=== PATIENT | male | born 1970 | race Caucasian/White ===

== ENCOUNTER 2017-04-22 13:30 | Emergency (ER) | payer SELFPAY ==
[2017-04-22] MEDS ORDERED: CEFTRIAXONE 2 GM/D5W RTU 50 ML IV ONE (14:08)
[2017-04-22] MEDS ORDERED: DIPHENHYDRAMINE HCL 50 MG/ML VIAL IV ONE (14:08)
[2017-04-22] MEDS ORDERED: METOCLOPRAMIDE HCL INJ/PF 10 MG/2 ML SDV IV ONE (14:08)
[2017-04-22] MEDS ORDERED: MORPHINE SULFATE 10 MG/ML INJ IV ONE (14:08)
--- NOTE | 2017-04-22 14:11 | ER Document Report ---
ED General - General Chief Complaint: Headache Stated Complaint: POSSIBLE ETOH Time Seen by Provider: 04/22/17 13:46 Mode of Arrival: Medic Information source: Patient Notes: This is a 46-year-old Yoruba-speaking man who is brought in by EMS with severe headache in the setting of recent fever (100.5). Patient had reported to the PCP that he smoked a lot of pot yesterday. During the interpretation of Jason , he states he drinks 3 beers a day and has not had any drugs. He states that he does have a history of depression but he does not have a history of headaches. He states that his headache started 1 week ago. He states the headache is been quite severe. He states that his fevers were 2-3 days ago. History is with the assistance of Max at the bedside. Patient is originally from [place] and has been here for 5 years. He denies any history of migraines. - HPI Onset: Last week Onset/Duration: Gradual Quality of pain: Dull Severity: Moderate Associated symptoms: Chills, Fever, Other - Headache. denies: Shortness of breath Exacerbated by: Denies Relieved by: Denies Similar symptoms previously: No Recently seen / treated by doctor: No - Related Data Allergies/Adverse Reactions: No Known Allergies Allergy (Unverified 04/22/17 15:16) Past Medical History - General Information source: Patient - Social History Smoking Status: Never Smoker Cigarette use (# per day): No Chew tobacco use (# tins/day): No Frequency of alcohol use: Occasional Drug Abuse: None Lives with: Family Family History: Reviewed & Not Pertinent Patient has suicidal ideation: No Patient has homicidal ideation: No - Medical History Medical History: Negative Surgical Hx: Negative Review of Systems - Review of Systems Constitutional: Chills, Fever EENT: No symptoms reported Cardiovascular: No symptoms reported Respiratory: No symptoms reported Gastrointestinal: No symptoms reported Genitourinary: No symptoms reported Male Genitourinary: No symptoms reported Musculoskeletal: No symptoms reported Skin: No symptoms reported Hematologic/Lymphatic: No symptoms reported Neurological/Psychological: Headaches Physical Exam - Vital signs Vitals: Temp Pulse Resp BP Pulse Ox 96.3 F L 79 18 114/83 94 04/22/17 13:39 04/22/17 13:39 04/22/17 13:39 04/22/17 13:39 04/22/17 13:39 Notes: Interpretation is Via Max at the bedside. Physical exam: GENERAL: 46-year-old man, alert and oriented 3, appears in distress. He is sitting up in the stretcher holding his head. HEAD: Atraumatic, normocephalic. EYES: Pupils equal round and reactive to light, extraocular movements intact, sclera anicteric, conjunctiva are normal. ENT: TMs normal, nares patent, oropharynx clear without exudates. Moist mucous membranes. NECK: Normal range of motion, supple without lymphadenopathy or JVD. LUNGS: Breath sounds clear to auscultation bilaterally and equal. No wheezes rales or rhonchi. HEART: Regular rate and rhythm without murmurs, rubs or gallops. ABDOMEN: Soft, normoactive bowel sounds. No tenderness to palpation. No guarding, no rebound. No masses appreciated. EXTREMITIES: Normal range of motion, no pitting or edema. No clubbing or cyanosis. NEUROLOGICAL: Cranial nerves II through XII grossly intact. Normal speech, normal gait. PSYCH: Normal mood, normal affect. SKIN: Warm, Dry, normal turgor, no rashes or lesions noted. Course - Re-evaluation Re-evalutation: 04/22/17 19:14 Note: The patient is stating that he has the worst headache of his life. He does report having fever and chills over the last several days. Certainly a concern for possible subarachnoid hemorrhage or meningitis. He looks uncomfortable. He denies any history of headaches in the past. He has been drinking alcohol today. Head CT showed no evidence of acute bleed. Because of the concern for meningitis, a spinal tap was performed. Consent was obtained with the assistance of Max interpretation. Staff appears clear and without infection. 04/22/17 20:01 Note: I have had another discussion with the patient with the assistance of Max and I went over the results of the tests with the patient which is been good. Additionally, I will send him home on some pain medicine and have him follow-up with her primary care doctor in the community. I have advised him to consider [facility] for outpatient alcohol detox. He has been at that facility in the past. I have spoken with the patient's brother and kept him up to date on all the results at [phone]. He reiterated that the patient has long history of alcohol abuse and has had multiple inpatient and outpatient detox days and he will be seems to relapse. I am not convinced that the alcohol is the primary factor in the patient's headache today, but it will certainly complicate the clinical picture and I have discussed this with the patient's brother as well as the patient himself. - Vital Signs Vital signs: Temp Pulse Resp BP Pulse Ox 96.3 F L 63 16 101/62 96 04/22/17 13:39 04/22/17 18:42 04/22/17 18:42 04/22/17 18:42 04/22/17 18:42 - Laboratory Result Diagrams: 04/22/17 14:20 04/22/17 14:20 Laboratory results interpreted by me: 04/22/17 04/22/17 04/22/17 14:20 14:20 15:55 Hgb 17.7 H Hct 51.5 H Sodium 149.5 H Chloride 109 H CSF Total Protein 93 H Salicylates < 1.0 L Acetaminophen < 10 L - Diagnostic Test Radiology reviewed: Image reviewed, Reports reviewed - The head shows no bleed. CTA shows no aneurysm - EKG Interpretation by Me Rate: Normal Rhythm: NSR - EKG shows normal sinus rhythm with a ventricular rate of 76, no acute ST-T wave changes. Procedures - Lumbar Puncture Lumbar puncture Time completed: 16:04 Consent obtained: Yes - via Max at the bedside Lumbar puncture pre-procedure: Chloraprep applied Patient position: Sitting Needle size: 20 Lumbar puncture location: l4 Anesthetic type: 1% Lidocaine mL's of anesthetic: 4 Amount/type of drainage: 4 cc clear Number of attempts: 3 Complications: No Notes: 04/22/17 16:05 Fluid appears clear. Patient tolerated procedure well. Discharge - Discharge Clinical Impression: Severe headache, Alcohol intoxication, Alcohol abuse Condition: Stable Disposition: HOME, SELF-CARE Instructions: Headache ([facility]) Additional Instructions: Recommendations: Rest, drink plenty of fluids, take medicine as needed for headache. Stop drinking. I recommend you follow-up as an aunt for outpatient detox with [facility] : it is across the street from the hospital. [facility] [address] [place] Crisis Response: [phone] Outpatient services: [phone] Accepts self pay To the emergency room for worsening headache, fever, chills or any concerns or getting worse Prescriptions: Butalb/Acetaminophen/Caffeine [Fioricet (50-325-40 mg) Tablet] 1 tab PO Q4HP PRN #30 tab PRN Reason:
[2017-04-22 14:41] LABS: ABSOLUTE EOSINOPHILS # (AUTO) 0.2 10^3/uL (0.0-0.6); ABSOLUTE LYMPHOCYTES (AUTO) 2.6 10^3/uL (0.5-4.7); ABSOLUTE MONOCYTES (AUTO) 0.4 10^3/uL (0.1-1.4); ABSOLUTE NEUT (AUTO) 3.4 10^3/uL (1.7-8.2); BASOPHILS % (AUTO) 0.5 % (0-2); EOSINOPHILS % (AUTO) 2.5 % (0-6); HEMATOCRIT 51.5 % (37.9-51.0); HEMOGLOBIN 17.7 g/dL (13.5-17.0); HGB HCT DIFFERENCE 1.6; LYMPHOCYTES % (AUTO) 39.3 % (13-45); MEAN CORPUSCULAR HEMOGLOBIN 32.9 pg (27.0-33.4); MEAN CORPUSCULAR HGB CONC 34.4 g/dL (32.0-36.0); MEAN CORPUSCULAR VOLUME 96 fl (80-97); MONOCYTES % (AUTO) 6.6 % (3-13); RED BLOOD COUNT 5.38 10^6/uL (4.35-5.55); RED CELL DISTRIBUTION WIDTH 12.6 % (11.5-14.0); SEGMENTED NEUTROPHILS % (AUTO) 51.1 % (42-78); WHITE BLOOD COUNT 6.6 10^3/uL (4.0-10.5)
--- NOTE | 2017-04-22 14:57 | RADIOLOGY REPORT (SQ) ---
EXAM DESCRIPTION: CT HEAD WITHOUT COMPLETED DATE/TIME: 04/22/2017 2:48 pm REASON FOR STUDY: headache COMPARISON: None. TECHNIQUE: Axial images acquired through the brain without intravenous contrast. Images reviewed wi th bone, brain and subdural windows. Images stored on PACS. All CT scanners at this facility use dose modulation, iterative reconstruction, and/or weight based d osing when appropriate to reduce radiation dose to as low as reasonably achievable (ALARA). [facility]: Dose Right [facility]: CareDose [facility]: Dose Right [facility]: Teradose 4D [facility]: SRL Global RADIATION DOSE: 28.01 mGy. LIMITATIONS: None. FINDINGS: VENTRICLES: Normal size and contour. CEREBRUM: No masses. No hemorrhage. No midline shift. Normal irizarry/white matter differentiation. N o evidence for acute infarction. CEREBELLUM: No masses. No hemorrhage. No alteration of density. No evidence for acute infarction. EXTRAAXIAL SPACES: No fluid collections. No masses. ORBITS AND GLOBE: No intra- or extraconal masses. Normal contour of globe without masses. CALVARIUM: No fracture. PARANASAL SINUSES: No fluid or mucosal thickening. SOFT TISSUES: No mass or hematoma. OTHER: No other significant finding. IMPRESSION: NORMAL BRAIN CT WITHOUT CONTRAST. TECHNICAL DOCUMENTATION: JOB ID: [id number] Quality ID # [id number]: Final reports with documentation of one or more dose reduction techniques (e.g., Au tomated exposure control, adjustment of the mA and/or kV according to patient size, use of iterative reconstruction technique) 2010 [employer]- All Rights Reserved
[2017-04-22 14:58] LABS: ALANINE AMINOTRANSFERASE 40 U/L (21-72); ALBUMIN 4.6 g/dL (3.5-5.0); ALCOHOL 281 mg/dL (NONE DETECTED); ALKALINE PHOSPHATASE 57 U/L (38-126); ANION GAP 17 (5-19); ASPARTATE AMINO TRANSFERASE 28 U/L (17-59); BILIRUBIN,DIRECT 0.2 mg/dL (0.0-0.4); BILIRUBIN,TOTAL 0.5 mg/dL (0.2-1.3); BLOOD UREA NITROGEN 14 mg/dL (7-20); CALCIUM 9.4 mg/dL (8.4-10.2); CARBON DIOXIDE 24 mmol/L (22-30); CHLORIDE 109 mmol/L (98-107); CREATININE RESULT 0.88 mg/dL (0.52-1.25); GLUCOSE 90 mg/dL (75-110); POTASSIUM 4.3 mmol/L (3.6-5.0); SODIUM 149.5 mmol/L (137-145); TOTAL PROTEIN 7.7 g/dL (6.3-8.2)
[2017-04-22] MEDS ORDERED: ONDANSETRON HCL INJ/PF 4 MG/2 ML SDV IV ONE (16:03)
[2017-04-22 16:53] LABS: GLUCOSE,CSF 62 mg/dL (40-70)
[2017-04-22 16:55] LABS: APPEARANCE ALL TUBES CLEAR
[2017-04-22 16:56] LABS: RBC DILUENT USED NONE USED; RBC DILUTION FACTOR 1; RBC SIDE 1 21; RBC SIDE 2 23; TOTAL RBC SQUARES COUNTED 225
[2017-04-22 16:57] LABS: WHITE BLOOD CELL,CSF 2 /uL (0-5)
[2017-04-22 16:58] LABS: APPEARANCE ALL TUBES CLEAR; RBC SIDE 1 0
[2017-04-22 16:59] LABS: RBC DILUENT USED NONE USED; RBC DILUTION FACTOR 1; RBC SIDE 2 0; TOTAL RBC SQUARES COUNTED 225; WHITE BLOOD CELL,CSF 1 /uL (0-5)
[2017-04-22] MEDS ORDERED: NORMAL SALINE 1000 ML 1,000 ML IV PRN (17:03)
--- NOTE | 2017-04-22 17:10 | PSYCHOLOGICAL NOTE ---
Psych Note - Psych Note Psych Note: Patient presented to [facility] ED reporting SI and was referred for consultation. Scotty additionally reported severe headache symptoms, which per the ED MD will require extensive medical evaluation. Patient is also acutely intoxicated. Patient will be evaluated at a later time, closer to legal sobriety.
[2017-04-22 18:15] LABS: APPEARANCE,URINE CLEAR; BILIRUBIN,URINE NEGATIVE (NEGATIVE); GLUCOSE, URINE NEGATIVE (NEGATIVE); KETONES,URINE NEGATIVE (NEGATIVE); LEUKOCYTE ESTERASE,URINE NEGATIVE (NEGATIVE); NITRITE,URINE NEGATIVE (NEGATIVE); PROTEIN,URINE NEGATIVE (NEGATIVE); URINE SPECIFIC GRAVITY 1.013; UROBILINOGEN,URINE NEGATIVE mg/dL (<2.0)
[2017-04-22 18:27] LABS: URINE BARBITURATES SCREEN NEGATIVE; URINE METHADONE SCREEN NEGATIVE; URINE OPIATES LOW UNCONFIRMED POSITIVE; URINE PHENCYCLIDINE SCREEN NEGATIVE
[2017-04-22] MEDS ORDERED: KETOROLAC TROMETHAMINE INJ/PF 30 MG/1 ML SDV IV ONE (19:17)
[2017-04-22] MEDS ORDERED: BUTALB/ACETAMINOPHEN/CAFFEINE 1 TAB EACH PO ONE (19:28)
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
[2017-04-22 20:45] VITALS: BP 91/53
--- NOTE | 2017-04-22 21:15 | EKG REPORT ---
SEVERITY:- NORMAL ECG - SINUS RHYTHM : Confirmed by: Neisha Lau 22-Apr-2017 21:14:16
== END 2017-04-22 20:45 | disposition home or self-care (01) ==
LOC: ER 13:30 → EDBD 13:30 → ER 20:45
DX: R51 Headache (principal); R50.9 Fever, unspecified; F10.10 Alcohol abuse, uncomplicated; F10.129 Alcohol abuse with intoxication, unspecified
CPT/HCPCS: 93005; 99285; 96361; 96375; 96365; 36415; 87040; 87070; 87205; 80307 ×4; 85025; 89050; 82945; 84157; 80053; 81001; 70450; 70496; 93010; J3490; J1200; J2765; J2270; J2405; J7030; J0696

== ENCOUNTER 2017-05-22 11:22 | Emergency (ER) | payer SELFPAY ==
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
[2017-05-22 15:03] VITALS: BP 119/81
== END 2017-05-22 15:39 | disposition home or self-care (01) ==
LOC: ER 11:22
DX: S09.93XA Unspecified injury of face, initial encounter (principal); R10.9 Unspecified abdominal pain; R07.9 Chest pain, unspecified; M25.562 Pain in left knee; Z23 Encounter for immunization; R45.851 Suicidal ideations; V18.4XXA Pedal cycle driver injured in noncollision transport accident in traffic accident, initial encounter; Y93.55 Activity, bike riding; F10.129 Alcohol abuse with intoxication, unspecified
CPT/HCPCS: 70450; 71260; 72125; 99284

== ENCOUNTER 2017-05-29 01:57 | Emergency (ER) | payer SELFPAY ==
[2017-05-29 05:25] LABS: ABSOLUTE EOSINOPHILS # (AUTO) 0.3 10^3/uL (0.0-0.6); ABSOLUTE LYMPHOCYTES (AUTO) 1.9 10^3/uL (0.5-4.7); ABSOLUTE MONOCYTES (AUTO) 0.5 10^3/uL (0.1-1.4); ABSOLUTE NEUT (AUTO) 3.7 10^3/uL (1.7-8.2); ALANINE AMINOTRANSFERASE 37 U/L (21-72); ALBUMIN 4.1 g/dL (3.5-5.0); ALKALINE PHOSPHATASE 57 U/L (38-126); ANION GAP 15 (5-19); ASPARTATE AMINO TRANSFERASE 28 U/L (17-59); BASOPHILS % (AUTO) 0.5 % (0-2); BILIRUBIN,DIRECT 0.3 mg/dL (0.0-0.4); BILIRUBIN,TOTAL 0.4 mg/dL (0.2-1.3); BLOOD UREA NITROGEN 11 mg/dL (7-20); CALCIUM 8.9 mg/dL (8.4-10.2); CARBON DIOXIDE 23 mmol/L (22-30); CHLORIDE 110 mmol/L (98-107); CREATININE RESULT 0.79 mg/dL (0.52-1.25); EOSINOPHILS % (AUTO) 4.6 % (0-6); GLUCOSE 110 mg/dL (75-110); HEMATOCRIT 44.6 % (37.9-51.0); HEMOGLOBIN 15.2 g/dL (13.5-17.0); LYMPHOCYTES % (AUTO) 30.1 % (13-45); MEAN CORPUSCULAR HEMOGLOBIN 32.7 pg (27.0-33.4); MEAN CORPUSCULAR VOLUME 96 fl (80-97); MONOCYTES % (AUTO) 7.4 % (3-13); POTASSIUM 3.6 mmol/L (3.6-5.0); RED BLOOD COUNT 4.63 10^6/uL (4.35-5.55); RED CELL DISTRIBUTION WIDTH 12.9 % (11.5-14.0); SEGMENTED NEUTROPHILS % (AUTO) 57.4 % (42-78); SODIUM 148.3 mmol/L (137-145); WHITE BLOOD COUNT 6.4 10^3/uL (4.0-10.5)
--- NOTE | 2017-05-29 05:27 | ER Document Report ---
ED General - General Chief Complaint: Suicidal Ideation Stated Complaint: POSSIBLE ETOH/SUICIDIAL IDEATION Time Seen by Provider: 05/29/17 03:22 Cannot obtain history due to: Intoxicated Notes: Patient is a 46-year-old male well-known to me and this emergency department who presents after being found intoxicated behind the [employer]. At time of arrival he notes that he wants to kill himself stating that he has thought about doing this with a gun or by strangling himself. Patient admits to heavy alcohol use today. Patient frequently come to the emergency department complaining of suicidal ideation but denies these allegations when sober. He denies any acute medical complaints at this time. The history and physical exam was obtained by the provider using Belarusian. A formal hospital supervisor instrument mechanics was offered to the patient and any family at the bedside at the beginning of the encounter and was declined. - Related Data Allergies/Adverse Reactions: No Known Allergies Allergy (Unverified 04/22/17 15:16) Past Medical History - General Information source: Patient Cannot obtain history due to: Intoxicated - Social History Smoking Status: Never Smoker Frequency of alcohol use: Heavy Drug Abuse: None Lives with: Homeless Family History: Reviewed & Not Pertinent - Immunizations Hx Diphtheria, Pertussis, Tetanus Vaccination: - unknown Review of Systems - Review of Systems Notes: Constitutional: Negative for fever. HENT: Negative for sore throat. Eyes: Negative for visual changes. Cardiovascular: Negative for chest pain. Respiratory: Negative for shortness of breath. Gastrointestinal: Negative for abdominal pain, vomiting or diarrhea. Genitourinary: Negative for dysuria. Musculoskeletal: Negative for back pain. Skin: Negative for rash. Neurological: Negative for headaches, weakness or numbness. 10 point ROS negative except as marked above and in HPI. Physical Exam - Vital signs Vitals: Temp Pulse Resp BP Pulse Ox 97.1 F 89 16 128/86 H 96 05/29/17 02:11 05/29/17 02:11 05/29/17 02:11 05/29/17 02:11 05/29/17 02:11 Interpretation: Normal Notes: PHYSICAL EXAMINATION: GENERAL: Intoxicated, no acute distress HEAD: Atraumatic, normocephalic. EYES: Pupils equal round and reactive to light, extraocular movements intact, sclera anicteric, conjunctiva are normal. ENT: nares patent, oropharynx clear without exudates. Moist mucous membranes. NECK: Normal range of motion, supple without lymphadenopathy LUNGS: Breath sounds clear to auscultation bilaterally and equal. No wheezes rales or rhonchi. HEART: Regular rate and rhythm without murmurs ABDOMEN: Soft, nontender, normoactive bowel sounds. No guarding, no rebound. No masses appreciated. EXTREMITIES: Normal range of motion, no pitting or edema. No cyanosis. NEUROLOGICAL: No focal neurological deficits. Moves all extremities spontaneously and on command. PSYCH: Endorsing suicidal ideation, intoxicated. SKIN: Warm, Dry, normal turgor, no rashes or lesions noted. Course - Re-evaluation Re-evalutation: 05/29/17 05:25 Patient presents with alcohol intoxication, similar to previous presentations. He does complain of passive suicidal ideation with flight of ideas in regards to how he would kill himself. This is very similar to prior presentations. He denies any acute medical complaints. The medical screening exam is unremarkable. He does not meet involuntary commitment criteria at this time. He will see psychiatry in the morning. - Vital Signs Vital signs: Temp Pulse Resp BP Pulse Ox 97.1 F 89 16 128/86 H 96 05/29/17 02:11 05/29/17 02:11 05/29/17 02:11 05/29/17 02:11 05/29/17 02:11 - Laboratory Result Diagrams: 05/29/17 02:13 05/29/17 02:13 - EKG Interpretation by Me Additional EKG results interpreted by me: 05/29/17 05:26 Normal sinus rhythm. Rate 85. No ST elevations or depressions. QTC is 482. Discharge - Discharge Clinical Impression: Suicidal ideation Alcoholic intoxication Qualifiers: Complication of substance-induced condition: uncomplicated Qualified Code(s): F10.920 - Alcohol use, unspecified with intoxication, uncomplicated Condition: Stable Disposition: PSYCH HOSP/UNIT
[2017-05-29 05:36] LABS: ALCOHOL 346 mg/dL (NONE DETECTED)
--- NOTE | 2017-05-29 08:14 | EKG REPORT ---
SEVERITY:- NORMAL ECG - SINUS RHYTHM : Confirmed by: Bartolo Sauer MD 29-May-2017 08:13:59
--- NOTE | 2017-05-29 10:03 | ER Document Report ---
Doctor's Note Notes: 05/29/17 10:02 This 46-year-old male patient comes emergency room early this morning extremely intoxicated reporting suicidal ideation. His alcohol level will be down to about 100 mg% at 2 PM this afternoon. He will be reevaluated for discharge at that time. Presently he is sound asleep.
[2017-05-29 16:29] LABS: APPEARANCE,URINE CLEAR; BILIRUBIN,URINE NEGATIVE (NEGATIVE); GLUCOSE, URINE NEGATIVE (NEGATIVE); KETONES,URINE NEGATIVE (NEGATIVE); LEUKOCYTE ESTERASE,URINE NEGATIVE (NEGATIVE); NITRITE,URINE NEGATIVE (NEGATIVE); PROTEIN,URINE NEGATIVE (NEGATIVE); URINE SPECIFIC GRAVITY 1.014; UROBILINOGEN,URINE NEGATIVE mg/dL (<2.0)
[2017-05-29 16:45] LABS: URINE BARBITURATES SCREEN NEGATIVE; URINE METHADONE SCREEN NEGATIVE; URINE OPIATES LOW NEGATIVE; URINE PHENCYCLIDINE SCREEN NEGATIVE
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
[2017-05-29 18:17] VITALS: BP 134/83
== END 2017-05-29 17:45 | disposition home or self-care (01) ==
LOC: ER 01:57 → EH 01:57 → ER 03:47
DX: R45.851 Suicidal ideations (principal); F10.920 Alcohol use, unspecified with intoxication, uncomplicated
CPT/HCPCS: 36415; 80053; 80307; 81001; 85025; 93005; 93010; 99285

== ENCOUNTER 2017-06-06 22:18 | Emergency (ER) | payer SELFPAY ==
[2017-06-06 23:11] LABS: ABSOLUTE BASOPHILS # (AUTO) 0.1 10^3/uL (0.0-0.2); ABSOLUTE EOSINOPHILS # (AUTO) 0.3 10^3/uL (0.0-0.6); ABSOLUTE LYMPHOCYTES (AUTO) 2.3 10^3/uL (0.5-4.7); ABSOLUTE MONOCYTES (AUTO) 0.7 10^3/uL (0.1-1.4); ABSOLUTE NEUT (AUTO) 4.2 10^3/uL (1.7-8.2); BASOPHILS % (AUTO) 0.9 % (0-2); EOSINOPHILS % (AUTO) 3.3 % (0-6); HEMATOCRIT 46.5 % (37.9-51.0); HEMOGLOBIN 15.6 g/dL (13.5-17.0); HGB HCT DIFFERENCE 0.3; LYMPHOCYTES % (AUTO) 31.1 % (13-45); MEAN CORPUSCULAR HEMOGLOBIN 32.8 pg (27.0-33.4); MEAN CORPUSCULAR HGB CONC 33.6 g/dL (32.0-36.0); MEAN CORPUSCULAR VOLUME 98 fl (80-97); MONOCYTES % (AUTO) 9.1 % (3-13); RED BLOOD COUNT 4.76 10^6/uL (4.35-5.55); RED CELL DISTRIBUTION WIDTH 13.2 % (11.5-14.0); SEGMENTED NEUTROPHILS % (AUTO) 55.6 % (42-78); WHITE BLOOD COUNT 7.5 10^3/uL (4.0-10.5)
[2017-06-06 23:16] LABS: APPEARANCE,URINE CLEAR; BILIRUBIN,URINE NEGATIVE (NEGATIVE); GLUCOSE, URINE NEGATIVE (NEGATIVE); KETONES,URINE NEGATIVE (NEGATIVE); LEUKOCYTE ESTERASE,URINE NEGATIVE (NEGATIVE); NITRITE,URINE NEGATIVE (NEGATIVE); PROTEIN,URINE NEGATIVE (NEGATIVE); URINE SPECIFIC GRAVITY 1.003; UROBILINOGEN,URINE NEGATIVE mg/dL (<2.0)
[2017-06-06 23:23] LABS: ALANINE AMINOTRANSFERASE 68 U/L (21-72); ALBUMIN 4.2 g/dL (3.5-5.0); ALCOHOL 234 mg/dL (NONE DETECTED); ALKALINE PHOSPHATASE 53 U/L (38-126); ANION GAP 14 (5-19); ASPARTATE AMINO TRANSFERASE 52 U/L (17-59); BILIRUBIN,DIRECT 0.3 mg/dL (0.0-0.4); BILIRUBIN,TOTAL 0.6 mg/dL (0.2-1.3); BLOOD UREA NITROGEN 11 mg/dL (7-20); CALCIUM 9.2 mg/dL (8.4-10.2); CARBON DIOXIDE 23 mmol/L (22-30); CHLORIDE 109 mmol/L (98-107); CREATININE RESULT 0.82 mg/dL (0.52-1.25); GLUCOSE 114 mg/dL (75-110); SODIUM 145.5 mmol/L (137-145)
--- NOTE | 2017-06-06 23:27 | ER Document Report ---
ED General - General Chief Complaint: Suicidal Ideation Stated Complaint: SUICIDAL IDEATIONS Time Seen by Provider: 06/06/17 22:40 Notes: Patient is a 46-year-old male who is well-known to the ER. I seen him several times in the past. I know him well. According to the chart this under his name is only been here 4 times before but this is not true and therefore I think there is probably some misspelling or disconnect with his name in the system. Patient presents because he says he is depressed. He says he drinks alcohol on a regular basis. He says he has tried to find help from other facilities but has been unable to. He therefore became upset and felt suicidal and took 3 Xanax and drank a lot of beer. The only complaint he has is some pain over the left upper chest wall. This is chronic for him. He has been seen several times in the past for this. He denies any fevers. No vomiting. No other complaints at this time. - Related Data Allergies/Adverse Reactions: No Known Allergies Allergy (Unverified 04/22/17 15:16) Past Medical History - Social History Smoking Status: Unknown if Ever Smoked Frequency of alcohol use: Heavy Drug Abuse: Prescription drugs Family History: Reviewed & Not Pertinent Patient has suicidal ideation: No Patient has homicidal ideation: No Renal/ Medical History: Denies: Hx Peritoneal Dialysis - Immunizations Hx Diphtheria, Pertussis, Tetanus Vaccination: - unknown Review of Systems - Review of Systems Notes: My Normal Review Basic REVIEW OF SYSTEMS: CONSTITUTIONAL : Denies fever, chills, or sweats. Denies recent illness. EENT: Denies eye, ear, throat, or mouth pain or symptoms. Denies nasal or sinus congestion. CARDIOVASCULAR: Some chest pain. RESPIRATORY: Denies cough, cold, or chest congestion. Denies shortness of breath, difficulty breathing, or wheezing. GASTROINTESTINAL: Denies abdominal pain. Denies nausea, vomiting, or diarrhea. Denies constipation. Last BM: MUSCULOSKELETAL: Denies neck or back pain or joint pain or swelling. SKIN: Denies rash or skin lesions. NEUROLOGICAL: Denies altered mental status or loss of consciousness. Denies headache. Denies weakness or paralysis or loss of use of either side. Denies problems with gait or speech. Denies sensory or motor loss. PSYCHIATRIC: Suicidal thoughts. ALL OTHER SYSTEMS REVIEWED AND NEGATIVE. Physical Exam - Vital signs Vitals: Temp Pulse Resp BP Pulse Ox 98.9 F 88 20 113/77 97 06/06/17 22:28 06/06/17 22:28 06/06/17 22:28 06/06/17 22:28 06/06/17 22:28 - Notes Notes: General Appearance: Well nourished, alert, cooperative, no acute distress, no obvious discomfort. Smells of alcohol. Vitals: reviewed, See vital signs table. Head: no swelling or tenderness to the head Eyes: PERRL, EOMI, Conjuctiva clear Mouth: No decreasd moisture Chest wall: Pain is easily reproduced with palpation over left upper chest wall. Lungs: No wheezing, No rales, No rhonci, No accessory muscle use, good air exchange bilaterally. Heart: Normal rate, Regular rythm, No murmur, no rub Abdomen: Normal BS, soft, No rigidity, No abdominal tenderness, No guarding, no rebound, no abdominal masses, no organomegaly Extremities: strength 5/5 in all extremities, good pulses in all extremities, no swelling or tenderness in the extremities, no edema. Skin: warm, dry, appropriate color, no rash Neuro: speech clear, oriented x 3, normal affect, responds appropriately to questions. Course - Re-evaluation Re-evalutation: 06/07/17 02:36 Patient continues to do well. His laboratory evaluation is unremarkable. I have placed him on gabapentin 3 times a day to help prevent withdrawal being that he is a chronic alcoholic. Patient to be seen by psychiatry in the morning for further evaluation. Dictation of this chart was performed using voice recognition software; therefore, there may be some unintended grammatical errors. - Vital Signs Vital signs: Temp Pulse Resp BP Pulse Ox 98.9 F 88 20 113/77 97 06/06/17 22:28 06/06/17 22:28 06/06/17 22:28 06/06/17 22:28 06/06/17 22:28 - Laboratory Result Diagrams: 06/06/17 23:00 06/06/17 23:00 Laboratory results interpreted by me: 06/06/17 06/06/17 23:00 23:00 MCV 98 H Plt Count 147 L Sodium 145.5 H Chloride 109 H Glucose 114 H Salicylates < 1.0 L Acetaminophen < 10 L - EKG Interpretation by Me Additional EKG results interpreted by me: 06/06/17 23:27 EKG is reviewed and interpreted by me. EKG shows normal sinus rhythm with a rate of [address] segment elevation or depression. No ischemic T-wave inversions. CA interval, QRS duration, QTc intervals are within normal range. No acute changes in comparison to his old EKG from May 31, 2017. Discharge - Discharge Clinical Impression: Suicidal ideation, Alcohol abuse Condition: Stable Disposition: PSYCH HOSP/UNIT
[2017-06-06 23:32] LABS: URINE BARBITURATES SCREEN NEGATIVE; URINE METHADONE SCREEN NEGATIVE; URINE OPIATES LOW NEGATIVE; URINE PHENCYCLIDINE SCREEN NEGATIVE
[2017-06-07] MEDS: GABAPENTIN 300 MG CAPSULE PO SCH ×2 (02:45→09:29)
[2017-06-07] MEDS ORDERED: GABAPENTIN 300 MG CAPSULE PO ONE (03:15)
--- NOTE | 2017-06-07 08:18 | EKG REPORT ---
SEVERITY:- NORMAL ECG - SINUS RHYTHM ST ELEV, PROBABLE NORMAL EARLY REPOL PATTERN : Confirmed by: Bartolo Sauer MD 07-Jun-2017 08:17:58
[2017-06-07] MEDS ORDERED: ONDANSETRON 4 MG TAB.RAPDIS PO ONE (09:24)
--- NOTE | 2017-06-07 09:48 | ER Document Report ---
Doctor's Note Notes: 06/07/17 09:47 I have evaluated this pt. this am and he has no c/o at this time. He feels all of this needs are being met and his physical exam is normal. He is awaiting disposition per mental health.
--- NOTE | 2017-06-07 10:37 | ER Document Report ---
ED Psych Disorder / Suicide - General Chief Complaint: Suicidal Ideation Stated Complaint: SUICIDAL IDEATIONS Time Seen by Provider: 06/06/17 22:40 - HPI Notes: Patient is a 46-year-old male well-known to me and this emergency department who presents because he says he is depressed. He says he drinks alcohol on a regular basis. He says he has tried to find help from other facilities but has been unable to. He therefore became upset and felt suicidal and took 3 Xanax and drank a lot of beer. Notes patient spoke in broken Pashto mixed with Hong Konger; however, patient smiled and openly engage with clinician effectively communicating. Patient states he drank 4 beers and took 3 xanax. He stay [place]. Patient states his mother and daughter are flying in from [place] today. Clinician notes his mother and daughter live with the patient's brother per court order (reported by patient's brother 05/29/2017). 303.90 (F10.20) alcohol related disorder; severe V60.0 (Z59.0) Homelessness Impression\plan: Patient is considered psychiatrically clear for discharge. Patient does not meet IVC criteria per [place] GS 122C. Patient discloses suicidal ideation with no plans means or intent. Patient's brother discloses this is a chronic thought process for the patient (reported on 05/29/2017). Patient has been provided multiple opportunities for substance abuse to include treatment 3 weeks ago which he left after 2 days. Patient left the one-year treatment program because he did not like the food or atmosphere. Patient is currently homeless and family refuse further assistance because of the patient's noncompliance with treatment. Patient is recommended for substance abuse treatment. Dr. Knowles was consulted and the care and management of this patient; attending physician is in agreement with recommendations and disposition. - Related Data Allergies/Adverse Reactions: No Known Allergies Allergy (Unverified 04/22/17 15:16) Past Medical History - Social History Smoking Status: Unknown if Ever Smoked Frequency of alcohol use: Heavy Drug Abuse: Prescription drugs Family History: Reviewed & Not Pertinent Patient has suicidal ideation: No Patient has homicidal ideation: No Renal/ Medical History: Denies: Hx Peritoneal Dialysis - Immunizations Hx Diphtheria, Pertussis, Tetanus Vaccination: - unknown Physical Exam - Vital signs Vitals: Temp Pulse Resp BP Pulse Ox 98.9 F 88 20 113/77 97 06/06/17 22:28 06/06/17 22:28 06/06/17 22:28 06/06/17 22:28 06/06/17 22:28 Course - Vital Signs Vital signs: Temp Pulse Resp BP Pulse Ox 97.5 F 72 16 95/62 L 95 06/07/17 02:37 06/07/17 02:37 06/07/17 02:37 06/07/17 02:37 06/07/17 02:37 - Laboratory Result Diagrams: 06/06/17 23:00 06/06/17 23:00 Laboratory results interpreted by me: 06/06/17 06/06/17 23:00 23:00 MCV 98 H Plt Count 147 L Sodium 145.5 H Chloride 109 H Glucose 114 H Salicylates < 1.0 L Acetaminophen < 10 L Discharge - Discharge Clinical Impression: Suicidal ideation, Alcohol abuse, Homeless Condition: Stable Disposition: HOME, SELF-CARE Additional Instructions: CHRONIC ALCOHOLISM and ALCOHOL ABUSE: Your evaluation reveals evidence of chronic alcoholism, an addiction to alcohol. The tendency to alcoholism may be inherited. Chronic use of alcohol weakens muscles, causes fatty deposits in the liver , damages the stomach, makes you more prone to infections, and can cause defects in unborn children. In the long run, brain atrophy and cirrhosis of the liver result. You are also at greater risk for certain types of cancer, such as cancer of the mouth, throat, stomach, and liver. Counselling services are available to help you. In-hospital treatment programs often help. Support groups such as Alcoholics Anonymous can be very useful in beating this addiction. Your physician can make a referral for you. As alcoholics often are prone to other addictions, you should discuss your use of any other medications with the doctor. DEPRESSION: Your evaluation reveals that you have mental depression. While symptoms may be vague, they often include disturbance of sleep, fatigue, loss of appetite , and general loss of interest in life. While depression may be a side effect of drugs, or a reaction to a major change in your life, many cases have no known cause. If depression is acute, and related to a major loss in your life, you can expect it to clear completely with time. If you have been depressed a long time , are prone to repeated bouts of depression or low mood, or have been thinking of suicide, get help. Depression can be treated with anti-depressant medication and counselling. Long-term depression will often take a few weeks to clear, even with appropriate medication. Follow-up care is important. SUICIDAL IDEATION: Suicidal ideation is a common medical term for thoughts about suicide, which may be as detailed as a formulated plan, without the suicidal act itself. Although most people who undergo suicidal ideation do not commit suicide, some go on to make suicide attempts. The range of suicidal ideation varies greatly from fleeting to detailed planning, role playing, and unsuccessful attempts. While thoughts about suicide are common, most people do not carry out serious actions to commit suicide. Based upon your evaluation and discussion with you, we do not believe you are currently at risk to act upon your thoughts of suicide. You have agreed to return to the Emergency Department, at any time , if you feel inclined to act upon your suicidal thoughts. FOLLOW-UP CARE: Please follow up with [facility] upon discharge for substance abuse treatment. If you experience worsening or a significant change in your symptoms , notify the physician immediately or return to the Emergency Department at any time for re-evaluation. Referrals: [facility] [Outside] - 06/07/17
[2017-06-07 10:56] VITALS: BP 122/75
== END 2017-06-07 10:56 | disposition home or self-care (01) ==
LOC: ER 22:18
DX: R45.851 Suicidal ideations (principal); F10.10 Alcohol abuse, uncomplicated
CPT/HCPCS: 93005; 99285; 36415; 80307 ×4; 85025; 80053; 81001; 93010; S0119

== ENCOUNTER 2017-12-10 20:59 | Emergency (ER) | payer SELFPAY | END 2017-12-10 23:50 | disposition left against medical advice (07) | LOC: ER 20:59 | DX: Z53.21 Procedure and treatment not carried out due to patient leaving prior to being seen by health care provider (principal) ==